=== PATIENT | female | born 1940 | race Caucasian/White ===

== ENCOUNTER 2016-12-17 08:00 | Inpatient (IN) | payer MEDICARE, BC ==
[2017-01-17] MEDS ORDERED: Lidocaine 1%/Sod Bicarbonate in NS 8.4% 1 ML Syringe IV PRN (07:00)
[2017-01-17] MEDS ORDERED: Lactated Ringers 1,000 ML IV SCH (07:00)
[2017-01-17] MEDS ORDERED: Sodium Chloride 0.9% 10 ML Syringe FLUSH PRN (07:00)
[2017-01-17] MEDS ORDERED: Morphine PF 10 MG/10 ML SDV ONE (07:14)
[2017-01-17] MEDS ORDERED: Propofol 200 MG/20 ML SDV ONE ×2 (07:15→09:04)
--- NOTE | 2017-01-17 07:53 | PCM.PREANE ---
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 Respiratory: Reports: no symptoms Cardiovascular: Reports: blood pressure problem GI: Reports: no symptoms Other: Reports: diabetes, thyroid problems - PHYSICAL ASSESSMENT HR: 78 O2 Sat by Pulse Oximetry: 95 RR: 16 BP: 123/83 Temp: 99.2 C ASA Class: 1 Mental Status: alert & oriented x3 Airway Class: Mallampati = 2 Dentition: Reports: dentures Thyro-Mental Finger Breadths: 3 Mouth Opening Finger Breadths: 3 ROM/Head Extension: full Respiratory Status: lungs clear to auscultation bilaterally Cardiovascular Status: regular rate & rhythm, normal S1, S2, no murmur, blood pressure WNL - LAB Values: Laboratory Last Values WBC 9.19 K/mm3 (3.98-10.04) 01/05/17 15:01 RBC 4.11 M/mm3 (3.98-5.22) 01/05/17 15:01 Hgb 13.2 gm/L (11.2-15.7) 01/05/17 15:01 Hct 39.5 % (34.1-44.9) 01/05/17 15:01 MCV 96.1 fl (79.4-94.8) H 01/05/17 15:01 MCH 32.1 pg (25.6-32.2) 01/05/17 15:01 MCHC 33.4 g/dl (32.2-35.5) 01/05/17 15:01 RDW Std Deviation 42.4 fL (36.4-46.3) 01/05/17 15:01 Plt Count 384 K/mm3 (182-369) H 01/05/17 15:01 MPV 9.4 fl (9.4-12.3) 01/05/17 15:01 Neut % (Auto) 56.5 % (34.0-71.1) 01/05/17 15:01 Lymph % (Auto) 31.0 % (19.3-51.7) 01/05/17 15: [place] % (Auto) 8.3 % (4.7-12.5) 01/05/17 15:01 Eos % (Auto) 2.3 (0.7-5.8) 01/05/17 15:01 Baso % (Auto) 0.9 % (0.1-1.2) 01/05/17 15:01 Neut # 5.20 K/mm3 (1.56-6.13) 01/05/17 15:01 Lymph # 2.85 K/mm3 (1.18-3.74) 01/05/17 15:01 M[place] # 0.76 K/mm3 (0.24-0.36) H 01/05/17 15:01 Eos # 0.21 K/mm3 (0.04-0.36) 01/05/17 15:01 Baso # 0.08 K/mm3 (0.01-0.08) 01/05/17 15:01 C-Reactive Protein 0.2 mg/dL (<1.0) 01/05/17 15:01 MRSA (PCR) Negative 01/05/17 15:01 - ALLERGIES Allergies/Adverse Reactions: Allergies Allergy/AdvReac Type Severity Reaction Status Date / Time cephalexin [From Keflex] Allergy Rash Verified 01/14/17 12:05 Corticosteroids Allergy Cannot Verified 01/14/17 12:05 (Glucocorticoids) Remember Penicillins Allergy Rash Verified 01/14/17 12:05 Sulfa (Sulfonamide Allergy Rash Verified 01/14/17 12:05 Antibiotics) - ANESTHESIA PLAN Preop Beta Angelica: No Anesthesia Type Planned: spinal - ACKNOWLEDGEMENTS Pt an appropriate candidate for the planned anesthesia: Yes Alternatives and risks of anesthesia discussed w pt/guardian: Yes Pt/Guardian understands and agree with anesthesia plan: Yes PreAnesthesia Questionnaire HEENT History: Reports: Impaired vision Cardiovascular History: Reports: High cholesterol, Hypertension Respiratory History: Reports: Sleep apnea (pt denies sleep apnea) Gastrointestinal History: Reports: None Genitourinary History: Reports: None 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: Musculoskeletal History: Reports: Arthritis, Other (see below) (hx back surgery) Other Musculoskeletal History: Tennis Elbow Neurological History: Reports: None Psychiatric History: Reports: None Endocrine/Metabolic History: Reports: Diabetes, type II (BS 128), Hypothyroidism Hematologic History: Reports: None Immunologic History: Reports: None Oncologic (Cancer) History: Reports: Basal cell carcinoma, Colon, Squamous cell carcinoma Dermatologic History: Reports: Eczema - Past Surgical History HEENT Surgical History: Reports: None Cardiovascular Surgical History: Reports: None Respiratory Surgical History: Reports: None GI Surgical History: Reports: Appendectomy, Cholecystectomy (no anesthetic complications), Other (see below) Other GI Surgeries/Procedures: Exploratory Laparotomy Female Surgical History: Reports: Tubal ligation Endocrine Surgical History: Reports: None Neurological Surgical History: Reports: Lumbar spine Musculoskeletal Surgical History: Reports: Arthroscopic knee (no anesthetic complications with any previous surgeries) Dermatological Surgical History: Reports: None - Past Imaging History Past Imaging History: Reports: None - SUBSTANCE USE Smoking Status *Q: Never Smoker Days Per Week of Alcohol Use: 0 Recreational Drug Use History: No - HOME MEDS Home Medications: Home Meds Aspirin [Halfprin] 81 mg PO Q2D 01/14/17 [History] Cetirizine [ZyrTEC] 10 mg PO DAILY 01/14/17 [History] Clobetasol [Clobetasol Propionate 0.05%] 1 applic TOP BID PRN 01/14/17 [History] Desonide 1 applic TP DAILY PRN 01/14/17 [History] Furosemide 20 mg PO Q2D 01/14/17 [History] Levothyroxine 125 mcg PO ACBREAKFAST 01/14/17 [History] Losartan [Cozaar] 100 mg PO DAILY 01/14/17 [History] Potassium Chloride [Klor-Con 10] 10 meq PO DAILY 01/14/17 [History] Red Yeast Rice 600 mg PO DAILY 01/14/17 [History] diphenhydrAMINE HCl [Sleep Aid] 25 mg PO BEDTIME PRN 01/14/17 [History] metFORMIN [Glucophage] 1,000 mg PO BIDMEALS 01/14/17 [History] - CURRENT (IN HOUSE) MEDS Current Meds: Current Medications Morphine Sulfate 8 mg/Epinephrine HCl 0.3 mg/Cefuroxime Sodium 750 mg/Ketorolac Tromethamine 30 mg/Sodium Chloride 27.9 ml 0 mg .XX ONETIME ONE Stop: 01/17/17 09:01 Lactated Ringer's (Ringers, Lactated) 1,000 mls @ 125 mls/hr IV ASDIRECTED [facility] Lidocaine/Sodium Bicarbonate (Buffered Lidocaine 1% In Ns 8.4%) 0.25 ml IV ONETIME PRN PRN Reason: Prior to IV Start Sodium Chloride (Saline Flush) 10 ml FLUSH ASDIRECTED PRN PRN Reason: Keep Vein Open Discontinued Medications Morphine Sulfate (Duramorph Pf) Confirm Administered Dose 10 mg .ROUTE .STK-MED ONE Stop: 01/17/17 07:15 Propofol (Diprivan 20 Ml) Confirm Administered Dose 200 mg .ROUTE .STK-MED ONE Stop: 01/17/17 07:16
[2017-01-17] MEDS ORDERED: Ondansetron 4 MG/2 ML SDV ONE (09:11)
[2017-01-17] MEDS ORDERED: Lactated Ringers 1,000 ML ONE (09:33)
[2017-01-17] MEDS: ceFAZolin 1 GM Vial ONE ×2 (09:35→09:54)
[2017-01-17] MEDS: Iodine/Sodium Iodide 2% Tincture 30 ML Bottle ONE ×2 (09:35→09:50)
[2017-01-17] MEDS: Morphine 8 MG, EPINEPHrine 0.3 MG, Cefuroxime 750 MG, Ketorolac 30 MG, Sodium Chloride ... ONE ×10 (09:36→09:59)
[2017-01-17] MEDS: Bupivacaine 0.25% 30 ML SDV ONE ×2 (09:38→09:59)
[2017-01-17] MEDS ORDERED: Clobetasol 0.05% Crm 30 GM Tube TOP PRN (09:58)
--- NOTE | 2017-01-17 10:38 | PCM.POSTAN ---
POST ANESTHESIA ASSESSMENT - MENTAL STATUS Mental Status: alert, oriented - VITAL SIGNS Pulse Rate: 83 SaO2: 94 Resp Rate: 10 Blood Pressure: 116/59 Temperature: 97.1 C - RESPIRATORY Respiratory Status: respiratory rate WNL, airway patent, O2 saturation stable - CARDIOVASCULAR CV Status: pulse rate WNL, blood pressure stable - GASTROINTESTINAL GI Status: no symptoms - POST OP HYDRATION Hydration Status: adequate & stable
[2017-01-17] MEDS ORDERED: Ondansetron 4 MG/2 ML SDV IVPUSH PRN ×2 (10:40→13:00)
[2017-01-17] MEDS ORDERED: ePHEDrine 50 MG/ML SDV IVPUSH PRN (10:40)
[2017-01-17] MEDS ORDERED: diphenhydrAMINE 50 MG/ML SDV IVPUSH PRN ×2 (10:40→13:00)
--- NOTE | 2017-01-17 11:14 | CR ---
Left knee: AP and lateral views of the left knee were obtained. Comparison: Previous left knee study of 08/19/16. Knee prosthesis is seen. Components are aligned. Underlying bony structures are intact. Soft tissue air and air within the joint are seen from the surgical procedure. Impression: 1. Satisfactory postoperative radiographic appearance of recently placed left knee prosthesis. Diagnostic code #2
[2017-01-17] MEDS ORDERED: fentaNYL 100 MCG/2 ML SDV IVPUSH PRN (11:45)
[2017-01-17] MEDS ORDERED: HYDROmorphone 0.5 MG/0.5 ML Syringe IVPUSH PRN (11:45)
[2017-01-17] MEDS ORDERED: Morphine 2 MG/ML Syringe IVPUSH PRN (12:00)
[2017-01-17] MEDS ORDERED: Ketorolac 15 MG/ML SDV IVPUSH PRN (12:00)
[2017-01-17] MEDS ORDERED: Naloxone 0.4 MG/ML SDV IVPUSH PRN (12:00)
--- NOTE | 2017-01-17 14:17 | PCM48HPAN ---
Post Anesthesia Note - EVALUATION WITHIN 48HRS OF ANESTHETIC Vital Signs in Normal Range: Yes Patient Participated in Evaluation: Yes Respiratory Function Stable: Yes Airway Patent: Yes Cardiovascular Function Stable: Yes Hydration Status Stable: Yes Pain Control Satisfactory: Yes Nausea and Vomiting Control Satisfactory: Yes Mental Status Recovered: Yes - COMMENTS/OBSERVATIONS Free Text/Narrative:: information obtained from RN caring for pt in PACU
--- NOTE | 2017-01-17 14:33 | PCM.CONS ---
H&P History of Present Illness - General Date of Service: 01/17/17 Admit Problem/Dx: Admission Diagnosis/Problem Admission Diagnosis/Problem Arthritis of knee Source of Information: Patient, Old records, RN notes reviewed History Limitations: Reports: Physical impairment - History of Present Illness Initial Comments - Free Text/Narative: This is a 76-year-old, white female, with past medical history of HTN, HLD, Hypothyroidism, DM2, AR, Insomnia, Raynaud Disease, Sjogren Syndrome, and Sleep Apnea who underwent left total knee arthroplasty post operative day zero. Patient is doing relatively well. Currently, her pain is controlled. She denies any acute issues. Medicine was consulted for postoperative care. Left Knee Pain Score (Numeric/FACES): 4 - Related Data Allergies/Adverse Reactions: Allergies Allergy/AdvReac Type Severity Reaction Status Date / Time cephalexin [From Keflex] Allergy Rash Verified 01/17/17 08:53 Corticosteroids Allergy Cannot Verified 01/17/17 08:53 (Glucocorticoids) Remember Penicillins Allergy Rash Verified 01/17/17 08:53 Sulfa (Sulfonamide Allergy Rash Verified 01/17/17 08:53 Antibiotics) Home Medications: Home Meds Aspirin [Halfprin] 81 mg PO Q2D 01/14/17 [History] Clobetasol [Clobetasol Propionate 0.05%] 1 applic TOP BID PRN 01/14/17 [History] Desonide 1 applic TP DAILY PRN 01/14/17 [History] Furosemide 20 mg PO Q2D 01/14/17 [History] Levothyroxine 125 mcg PO ACBREAKFAST 01/14/17 [History] Losartan [Cozaar] 100 mg PO DAILY 01/14/17 [History] Potassium Chloride [Klor-Con 10] 10 meq PO DAILY 01/14/17 [History] Red Yeast Rice 600 mg PO BID 01/14/17 [History] diphenhydrAMINE HCl [Sleep Aid] 25 mg PO BEDTIME PRN 01/14/17 [History] metFORMIN [Glucophage] 1,000 mg PO BIDMEALS 01/14/17 [History] Fexofenadine [[place]] 180 mg PO DAILY 01/17/17 [History] PEG 400/Hypromellose/Glycerin [Eye Drop Tears] 2 drop EYEBOTH DAILY 01/17/17 [ History] Past Medical History HEENT History: Reports: Impaired vision Other HEENT History: Wears glasses for reading and driving Cardiovascular History: Reports: High cholesterol, Hypertension Respiratory History: Reports: Sleep apnea Gastrointestinal History: Reports: None Genitourinary History: Reports: 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: Musculoskeletal History: Reports: Arthritis, Other (see below) Other Musculoskeletal History: Tennis Elbow Neurological History: Reports: None Psychiatric History: Reports: None Endocrine/Metabolic History: Reports: Diabetes, type II, Hypothyroidism, Other ( see below) Other Endocrine/Metabolic History: Raynaud's disease, Sjogren's syndrome Hematologic History: Reports: None Immunologic History: Reports: None Oncologic (Cancer) History: Reports: Basal cell carcinoma, Colon, Squamous cell carcinoma Dermatologic History: Reports: Eczema - Past Surgical History HEENT Surgical History: Reports: None Cardiovascular Surgical History: Reports: None Respiratory Surgical History: Reports: None GI Surgical History: Reports: Appendectomy, Cholecystectomy, Other (see below) Other GI Surgeries/Procedures: Exploratory Laparotomy Female Surgical History: Reports: Tubal ligation Endocrine Surgical History: Reports: None Neurological Surgical History: Reports: Lumbar spine Musculoskeletal Surgical History: Reports: Arthroscopic knee Dermatological Surgical History: Reports: None - Past Imaging History Past Imaging History: Reports: None Social & Family History - Tobacco Use Smoking Status *Q: Never Smoker - Alcohol Use Days Per Week of Alcohol Use: 0 - Recreational Drug Use Recreational Drug Use: No H&P Review of Systems - Review of Systems: Review Of Systems: See Below General: Denies: fever, chills, malaise, weakness, fatigue HEENT: Reports: no symptoms. Denies: visual changes Pulmonary: Denies: shortness of breath, wheezing Cardiovascular: Denies: chest pain, palpitations, dyspnea on exertion, edema, lightheadedness, syncope Gastrointestinal: Denies: Abdominal pain, Decreased appetite, Nausea, Vomiting Genitourinary: Reports: no symptoms Musculoskeletal: Reports: no symptoms Skin: Denies: cyanosis, pallor, bruising, rash Psychiatric: Denies: depression, anxiety, hallucinations Neurological: Denies: confusion Hematologic/Lymphatic: Reports: no symptoms Immunologic: Reports: no symptoms Exam - Exam Exam: See Below - Vital Signs Vital Signs: Last Vital Signs Temp 36.4 C 01/17/17 11:35 Pulse 53 L 01/17/17 11:35 Resp 18 01/17/17 12:00 BP 117/63 01/17/17 13:00 Pulse Ox 99 01/17/17 13:10 Weight: 72.167 kg - Exam General: alert, oriented, cooperative. No: mild distress HEENT: Conjunctiva clear, EACs clear, EOMI, Hearing intact, Mucosa moist & pink , Nares patent, Normal nasal septum, Posterior pharynx clear, PERRLA Neck: supple, trachea midline, 2+ carotid pulse wo bruit, full range of motion. No: JVD Lungs: Normal respiratory effort, Decreased breath sounds Cardiovascular: regular rate, regular rhythm Abdomen: normal bowel sounds, soft. No: organomegaly (Female) Exam: Other (Indwelling astudillo catheter) Rectal (Female) Exam: Deferred Back Exam: normal inspection, decreased range of motion Extremities: normal inspection, normal pulses. No: clubbing, cyanosis, calf tenderness, edema Peripheral Pulses: 2+: dorsalis pedis (L), dorsalis pedis (R) Skin: warm, dry, intact Neuro Extensive - Mental Status: oriented x3, normal cognition, memory intact Neuro Extensive - Motor, Sensory, Reflexes: CN II-XII intact (fairly intact), abnormal gait Psychiatric: alert, normal affect, normal mood - Patient Data Result Diagrams: 01/05/17 15:01 Consult PN Assessment/Plan POD#: 0 Procedures: Procedures ASSAY OF FERRITIN (12/27/16) ASSAY OF PREALBUMIN (12/27/16) ASSAY OF SERUM ALBUMIN (12/27/16) ASSAY THYROID STIM HORMONE (12/03/16) C-REACTIVE PROTEIN (01/28/16) CHEST X-RAY 2VW FRONTAL&LATL (12/27/16) CMPLX RPR S/A/L 2.6-7.5 CM (03/04/16) CMPLX RPR S/A/L ADDL 5 CM/> (03/04/16) COMP SCREEN MAMMOGRAM ADD-ON (07/14/16) COMPLEMENT ANTIGEN (01/28/16) COMPLETE CBC AUTOMATED (12/27/16) COMPLETE CBC W/AUTO DIFF WBC (01/28/16) COMPREHEN METABOLIC PANEL (12/03/16) CT CHEST SPINE W/O DYE (07/14/14) CT LUMBAR SPINE W/O DYE (07/14/14) EMERGENCY DEPT VISIT (03/04/16) EXTREMITY STUDY (03/15/16) GLYCOSYLATED HEMOGLOBIN TEST (12/03/16) LIPID PANEL (12/03/16) METABOLIC PANEL TOTAL CA (12/27/16) MICROALBUMIN SEMIQUANT (12/03/16) OFFICE/OUTPATIENT VISIT EST (03/03/16) PROTHROMBIN TIME (12/27/16) ROUTINE VENIPUNCTURE (12/03/16) THROMBOPLASTIN TIME PARTIAL (12/27/16) VITAMIN D 25 HYDROXY (12/27/16) X-RAY EXAM HIP UNI 2-3 VIEWS (08/19/16) X-RAY EXAM OF ANKLE (03/15/16) X-RAY EXAM OF KNEE 3 (08/19/16) X-RAY EXAM THORAC SPINE 3VWS (07/14/14) Problem List Initiated/Reviewed/Updated: Yes Plan: Assessment: Acute: Post-Operative Care State - Stable - Continue to monitor for hemodynamic instability S/p Left Total Knee Arthroplasty - Stable - DVT and Pain Management as per primary team Hx/o Chronic OA/DJD - Pain Management as per primary team Chronic: HTN HLD Hypothyroidism DM2 AR Insomnia Raynaud Disease Sjogren Syndrome Sleep Apnea Plan: She is clinically stable Routine AM labs Continue home meds Accu-check and ISS BID PT/OT consult IS q2 awake Thank you for the opportunity to participate in the management of this patient. Requesting Provider: Dr. Lancaster Date Consult Requested: 01/17/17 Reason for Consult: Post-Operative Care Patient History Reviewed: Yes Admission H&P Reviewed: Yes Consult Result/Summary: Stable
[2017-01-17] MEDS: ceFAZolin 2 GM in Premix Bag 1 BAG IV SCH ×2 (14:53→23:37)
[2017-01-17] MEDS ORDERED: Aspirin 81 MG Tab.EC PO SCH (16:00)
[2017-01-17] MEDS ORDERED: DESONIDE TOP PRN (16:00)
[2017-01-17] MEDS: metFORMIN 500 MG Tab PO SCH (16:56)
[2017-01-17] MEDS: Acetaminophen/HYDROcodone 325-5 MG Tab PO PRN ×2 (17:38→23:43)
[2017-01-17] MEDS ORDERED: 50% Dextrose in Water 50 ML Syringe IVPUSH PRN (19:04)
[2017-01-17] MEDS ORDERED: Insulin Aspart 100 Units/ML 3 ML Pen SUBCUT SCH (19:15)
[2017-01-17] MEDS ORDERED: Magnesium Hydroxide 400 MG/5 ML Susp 30 ML Cup PO PRN (21:00)
[2017-01-17] MEDS ORDERED: Sennosides 8.6 MG Tab PO PRN (21:00)
[2017-01-17] MEDS ORDERED: Docusate Sodium 100 MG Cap PO PRN (21:00)
[2017-01-17] MEDS: Famotidine 20 MG Tab PO SCH (21:17)
[2017-01-18] MEDS: Acetaminophen/HYDROcodone 325-5 MG Tab PO PRN ×4 (04:33→16:21)
[2017-01-18] MEDS ORDERED: Levothyroxine 125 MCG Tab PO SCH (06:00)
[2017-01-18] MEDS: Insulin Aspart 100 Units/ML 3 ML Pen SUBCUT SCH ×2 (06:15→11:15)
[2017-01-18] MEDS: ceFAZolin 2 GM in Premix Bag 1 BAG IV SCH (06:45)
--- NOTE | 2017-01-18 06:51 | PCM.CONSN ---
- General Info Date of Service: 01/18/17 Admission Dx/Problem (Free Text): Admission Diagnosis/Problem Admission Diagnosis/Problem Arthritis of knee Subjective Update: Follow Up Functional Status: Reports: pain controlled, tolerating diet, ambulating, urinating. Denies: new symptoms - Review of Systems General: Denies: fever, weakness, fatigue, malaise HEENT: Reports: no symptoms Pulmonary: Denies: shortness of breath, cough Cardiovascular: Denies: chest pain, palpitations, dyspnea on exertion, edema Gastrointestinal: Denies: Abdominal pain, Nausea, Vomiting Musculoskeletal: Reports: no symptoms Skin: Reports: no symptoms Neurological: Denies: confusion Psychiatric: Denies: depression, anxiety, hallucinations Systems Review Comment:: No overnight or acute issues. Pain is controlled. She has no new complaints. - Patient Data Vitals - most recent: Last Vital Signs Temp 37.0 C 01/18/17 04:29 Pulse 72 01/18/17 04:29 Resp 18 01/18/17 06:00 BP 130/87 01/18/17 04:29 Pulse Ox 98 01/18/17 06:00 Weight - most recent: 76.34 kg I&O - last 24 hours: Intake & Output 01/17/17 01/17/17 01/18/17 14:59 22:59 06:59 Intake Total 960 930 550 Output Total 450 700 Balance 510 230 550 Lab Results last 24 hrs: Laboratory Results - last 24 hr 01/17/17 01/18/17 01/18/17 Range/Units 21:08 04:40 06:07 WBC 8.53 (3.98-10.04) K/mm3 RBC 3.53 L (3.98-5.22) M/mm3 Hgb 11.2 (11.2-15.7) gm/L Hct 35.0 (34.1-44.9) % MCV 99.2 H (79.4-94.8) fl MCH 31.7 (25.6-32.2) pg MCHC 32.0 L (32.2-35.5) g/dl RDW Std Deviation 46.1 (36.4-46.3) fL Plt Count 271 (182-369) K/mm3 MPV 10.5 (9.4-12.3) fl Neut % (Auto) 53.5 (34.0-71.1) % Lymph % (Auto) 28.5 (19.3-51.7) % [place] % (Auto) 11.6 (4.7-12.5) % Eos % (Auto) 5.4 (0.7-5.8) Baso % (Auto) 0.6 (0.1-1.2) % Neut # 4.57 (1.56-6.13) K/mm3 Lymph # 2.43 (1.18-3.74) K/mm3 [place] # 0.99 H (0.24-0.36) K/mm3 Eos # 0.46 H (0.04-0.36) K/mm3 Baso # 0.05 (0.01-0.08) K/mm3 POC Glucose 183 H 129 H (83-110) mg/dL Med Orders - Current: Current Medications Acetaminophen/Hydrocodone Bitart ([place] 325-5 Mg) 2 tab PO Q4H PRN PRN Reason: Pain Last Admin: 01/18/17 04:33 Dose: 1 tab Artificial Tears (Isopto Tears 0.5% Ophth Soln) 0 ml EYEBOTH DAILY [facility] Aspirin (Halfprin) 81 mg PO Q48H [facility] Last Admin: 01/17/17 16:55 Dose: 81 mg Bisacodyl (Dulcolax) 10 mg PO DAILY PRN PRN Reason: Constipation Clobetasol Propionate (Clobetasol 0.05%) 0 gm TOP BID PRN PRN Reason: Other Dextrose/Water (Dextrose 50% In Water) 50 ml IVPUSH ASDIRECTED PRN PRN Reason: Hypoglycemia Diphenhydramine HCl (Benadryl) 25 mg IVPUSH Q4H PRN PRN Reason: Nausea Docusate Sodium (Colace) 100 mg PO BID PRN PRN Reason: Constipation Famotidine (Pepcid) 20 mg PO Q12H [facility] Last Admin: 01/17/17 21:17 Dose: 20 mg Furosemide (Lasix) 20 mg PO Q48H [facility] Cefazolin Sodium/Dextrose 2 gm (/ Premix) 50 mls @ 50 mls/hr IV Q8H [facility] Stop: 01/18/17 08:44 Last Admin: 01/18/17 06:45 Dose: 50 mls/hr Insulin Aspart (Novolog) 0 unit SUBCUT QIDACANDBED [facility] PRN Reason: Protocol Last Admin: 01/18/17 06:15 Dose: Not Given Ketorolac Tromethamine (Toradol) 15 mg IVPUSH Q8H PRN PRN Reason: Pain Levothyroxine Sodium (Levothyroxine) 125 mcg PO ACBREAKFAST [facility] Last Admin: 01/18/17 06:10 Dose: 125 mcg Loratadine (Claritin) 10 mg PO DAILY [facility] Losartan Potassium (Cozaar) 100 mg PO DAILY [facility] Magnesium Hydroxide (Milk Of Magnesia) 30 ml PO BID PRN PRN Reason: Constipation Metformin HCl (Glucophage) 1,000 mg PO BIDMEALS [facility] Last Admin: 01/17/17 16:56 Dose: 1,000 mg Morphine Sulfate (Morphine) 2 mg IVPUSH Q2H PRN PRN Reason: Breakthrough Pain Ondansetron HCl (Zofran) 4 mg IVPUSH Q6H PRN PRN Reason: Nausea/Vomiting Desonide [Desonide] (1 Applic) 0 each TOP DAILY PRN PRN Reason: Other Potassium Chloride (Klor-Con 10) 10 meq PO DAILY [facility] Rivaroxaban (Xarelto) 10 mg PO DAILY [facility] Senna (Senna) 8.6 mg PO BID PRN PRN Reason: Constipation Sodium Chloride (Saline Flush) 10 ml FLUSH ASDIRECTED PRN PRN Reason: Keep Vein Open Discontinued Medications Bupivacaine HCl (Marcaine 0.25%) Confirm Administered Dose 30 ml .ROUTE .STK- MED ONE Stop: 01/17/17 07:47 Last Admin: 01/17/17 09:59 Dose: 30 ml Cefazolin Sodium (Ancef) Confirm Administered Dose 2 gm .ROUTE .STK-MED ONE Stop: 01/17/17 07:47 Last Admin: 01/17/17 09:54 Dose: 2 gm Morphine Sulfate 8 mg/Epinephrine HCl 0.3 mg/Cefuroxime Sodium 750 mg/Ketorolac Tromethamine 30 mg/Sodium Chloride 27.9 ml 0 mg .XX ONETIME ONE Stop: 01/17/17 09:01 Last Admin: 01/17/17 09:59 Dose: 788.3 mg Diphenhydramine HCl (Benadryl) 25 mg IVPUSH Q6H PRN PRN Reason: pruritis Stop: 01/17/17 18:00 Last Admin: 01/17/17 12:03 Dose: 25 mg Ephedrine Sulfate (Ephedrine Sulfate) 5 mg IVPUSH ASDIRECTED PRN PRN Reason: Hypotension Stop: 01/17/17 18:00 Fentanyl (Sublimaze) 50 mcg IVPUSH Q5M PRN PRN Reason: Pain Stop: 01/17/17 12:01 Hydromorphone HCl (Dilaudid) 0.5 mg IVPUSH Q15M PRN PRN Reason: severe pain Stop: 01/17/17 12:01 Lactated Ringer's (Ringers, Lactated) 1,000 mls @ 125 mls/hr IV ASDIRECTED [facility] Last Admin: 01/17/17 08:15 Dose: 125 mls/hr Lactated Ringer's (Ringers, Lactated) Confirm Administered Dose 1,000 mls @ as directed .ROUTE .STK-MED ONE Stop: 01/17/17 09:34 Insulin Aspart (Novolog) 0 unit SUBCUT ASDIRECTED [facility] PRN Reason: Protocol Iodine (Iodine 2% Mild Tincture) Confirm Administered Dose 30 ml .ROUTE .STK- MED ONE Stop: 01/17/17 07:47 Last Admin: 01/17/17 09:50 Dose: 18 ml Lidocaine/Sodium Bicarbonate (Buffered Lidocaine 1% In Ns 8.4%) 0.25 ml IV ONETIME PRN PRN Reason: Prior to IV Start Last Admin: 01/17/17 08:14 Dose: 0.25 ml Morphine Sulfate (Duramorph Pf) Confirm Administered Dose 10 mg .ROUTE .STK-MED ONE Stop: 01/17/17 07:15 Naloxone HCl (Narcan) 0.1 mg IVPUSH Q5M PRN PRN Reason: Oversedation Stop: 01/17/17 12:16 Ondansetron HCl (Zofran) Confirm Administered Dose 4 mg .ROUTE .STK-MED ONE Stop: 01/17/17 09:12 Ondansetron HCl (Zofran) 4 mg IVPUSH ONETIME PRN PRN Reason: Nausea/Vomiting Stop: 01/17/17 18:00 Propofol (Diprivan 20 Ml) Confirm Administered Dose 200 mg .ROUTE .STK-MED ONE Stop: 01/17/17 07:16 Propofol (Diprivan 20 Ml) Confirm Administered Dose 200 mg .ROUTE .STK-MED ONE Stop: 01/17/17 09:05 Tranexamic Acid (Cyklokapron) Confirm Administered Dose 1,000 mg .ROUTE .STK- MED ONE Stop: 01/17/17 07:47 Last Admin: 01/17/17 10:05 Dose: 1,000 mg - Exam General: alert, oriented, cooperative, no acute distress HEENT: Pupils equal, Pupils reactive, EOMI, Mucous membr. moist/pink Neck: supple, trachea midline, no JVD Lungs: Normal respiratory effort, Decreased breath sounds Cardiovascular: regular rate, regular rhythm Abdomen: bowel sounds present, soft, no tenderness, no distension (Female) Exam: Deferred Back Exam: normal inspection, decreased range of motion Extremities: no edema, normal pulses, no tenderness/swelling, no clubbing, no cyanosis, no calf tenderness Peripheral Pulses: 2+: dorsalis pedis (L), dorsalis pedis (R) Skin: warm, dry, intact Wound/Incisions: healing well, dressing dry and intact, no drainage Neurological: no new focal deficit Psy/Mental Status: alert, normal affect, normal mood Consult PN Assessment/Plan POD#: 1 Procedures: Procedures ASSAY OF FERRITIN (12/27/16) ASSAY OF PREALBUMIN (12/27/16) ASSAY OF SERUM ALBUMIN (12/27/16) ASSAY THYROID STIM HORMONE (12/03/16) C-REACTIVE PROTEIN (01/28/16) CHEST X-RAY 2VW FRONTAL&LATL (12/27/16) CMPLX RPR S/A/L 2.6-7.5 CM (03/04/16) CMPLX RPR S/A/L ADDL 5 CM/> (03/04/16) COMP SCREEN MAMMOGRAM ADD-ON (07/14/16) COMPLEMENT ANTIGEN (01/28/16) COMPLETE CBC AUTOMATED (12/27/16) COMPLETE CBC W/AUTO DIFF WBC (01/28/16) COMPREHEN METABOLIC PANEL (12/03/16) CT CHEST SPINE W/O DYE (07/14/14) CT LUMBAR SPINE W/O DYE (07/14/14) EMERGENCY DEPT VISIT (03/04/16) EXTREMITY STUDY (03/15/16) GLYCOSYLATED HEMOGLOBIN TEST (12/03/16) LIPID PANEL (12/03/16) METABOLIC PANEL TOTAL CA (12/27/16) MICROALBUMIN SEMIQUANT (12/03/16) OFFICE/OUTPATIENT VISIT EST (03/03/16) PROTHROMBIN TIME (12/27/16) ROUTINE VENIPUNCTURE (12/03/16) THROMBOPLASTIN TIME PARTIAL (12/27/16) VITAMIN D 25 HYDROXY (12/27/16) X-RAY EXAM HIP UNI 2-3 VIEWS (08/19/16) X-RAY EXAM OF ANKLE (03/15/16) X-RAY EXAM OF KNEE 3 (08/19/16) X-RAY EXAM THORAC SPINE 3VWS (07/14/14) Problem List Initiated/Reviewed/Updated: Yes My Orders last 24 hours: My Active Orders 01/17/17 19:04 Blood Glucose Check, Bedside [RC] WITHMEALSANDBED Dextrose 50% in Water 50 ml IVPUSH ASDIRECTED PRN 01/18/17 07:00 Insulin Aspart [NovoLOG] See Protocol SUBCUT QIDACANDBED 01/18/17 09:00 Hypromellose [Isopto Tears 0.5% Ophth Soln] 0 ml EYEBOTH DAILY Plan: Assessment: Acute: Post-Operative Care State - Stable - Continue to monitor for hemodynamic instability S/p Left Total Knee Arthroplasty - Stable - DVT and Pain Management as per primary team Hx/o Chronic OA/DJD - Pain Management as per primary team Chronic: HTN HLD Hypothyroidism DM2 AR Insomnia Raynaud Disease Sjogren Syndrome Sleep Apnea Plan: She remains clinically stable Routine AM labs Continue home meds, Accu-check and ISS BID, PT/OT, and IS q2 awake We have no additional recommendation at this time
[2017-01-18] MEDS: metFORMIN 500 MG Tab PO SCH (08:00)
[2017-01-18] MEDS: Famotidine 20 MG Tab PO SCH (08:01)
--- NOTE | 2017-01-18 08:18 | PCM48HPAN ---
Post Anesthesia Note - EVALUATION WITHIN 48HRS OF ANESTHETIC Vital Signs in Normal Range: Yes Patient Participated in Evaluation: Yes Respiratory Function Stable: Yes Airway Patent: Yes Cardiovascular Function Stable: Yes Hydration Status Stable: Yes Pain Control Satisfactory: Yes Nausea and Vomiting Control Satisfactory: Yes Mental Status Recovered: Yes
[2017-01-18] MEDS ORDERED: Losartan 100 MG Tab PO SCH (09:00)
[2017-01-18] MEDS ORDERED: Furosemide 20 MG Tab PO SCH (09:00)
[2017-01-18] MEDS ORDERED: Potassium Chloride 10 MEQ Tab.ER PO SCH (09:00)
[2017-01-18] MEDS ORDERED: Bisacodyl 5 MG Tab PO PRN (09:00)
[2017-01-18] MEDS ORDERED: Famotidine 20 MG Tab PO SCH (09:00)
[2017-01-18] MEDS ORDERED: Loratadine 10 MG Tab PO SCH (09:00)
[2017-01-18] MEDS ORDERED: Rivaroxaban 10 MG Tab PO SCH (09:00)
[2017-01-18] MEDS ORDERED: Hypromellose 0.5% Ophth Soln 15 ML Bottle EYEBOTH SCH (09:00)
[2017-01-18 11:28] VITALS: BP 116/77
--- NOTE | 2017-01-18 17:39 | PCM.SURGPN ---
- General Info Date of Service: 01/18/17 POD#: 1 Functional Status: Reports: pain controlled, tolerating diet, ambulating, urinating, other (The pt progressed very well with therapies today.). Denies: new symptoms - Patient Data Vitals - most recent: Last Vital Signs Temp 97.9 F 01/18/17 11:12 Pulse 70 01/18/17 11:12 Resp 20 01/18/17 11:12 BP 116/77 01/18/17 11:12 Pulse Ox 92 L 01/18/17 11:12 Weight - most recent: 168 lb 4.8 oz I&O - last 24 hours: Intake & Output 01/18/17 01/18/17 01/18/17 06:59 14:59 22:59 Intake Total 616 863 8536 Balance 521 021 1124 Lab Results last 24 hrs: Laboratory Results - last 24 hr 01/17/17 01/18/17 01/18/17 Range/Units 21:08 04:40 04:40 WBC 8.53 (3.98-10.04) K/mm3 RBC 3.53 L (3.98-5.22) M/mm3 Hgb 11.2 (11.2-15.7) gm/L Hct 35.0 (34.1-44.9) % MCV 99.2 H (79.4-94.8) fl MCH 31.7 (25.6-32.2) pg MCHC 32.0 L (32.2-35.5) g/dl RDW Std Deviation 46.1 (36.4-46.3) fL Plt Count 271 (182-369) K/mm3 MPV 10.5 (9.4-12.3) fl Neut % (Auto) 53.5 (34.0-71.1) % Lymph % (Auto) 28.5 (19.3-51.7) % Vermilion % (Auto) 11.6 (4.7-12.5) % Eos % (Auto) 5.4 (0.7-5.8) Baso % (Auto) 0.6 (0.1-1.2) % Neut # 4.57 (1.56-6.13) K/mm3 Lymph # 2.43 (1.18-3.74) K/mm3 Vermilion # 0.99 H (0.24-0.36) K/mm3 Eos # 0.46 H (0.04-0.36) K/mm3 Baso # 0.05 (0.01-0.08) K/mm3 Sodium 137 (136-145) mEq/L Potassium 4.1 (3.5-5.1) mEq/L Chloride 102 (98-107) mEq/L Carbon Dioxide 22 (21-32) mEq/L Anion Gap 17.1 H (5-15) BUN 18 (7-18) mg/dL Creatinine 1.0 (0.55-1.02) mg/dL Est Cr Clr Drug Dosing 38.97 mL/min Estimated GFR (MDRD) 54 (>60) mL/min BUN/Creatinine Ratio 18.0 (14-18) Glucose 133 H (83-115) mg/dL POC Glucose 183 H (83-110) mg/dL Calcium 8.6 (8.5-10.1) mg/dL Total Bilirubin 0.4 (0.2-1.0) mg/dL AST 14 L (15-37) U/L ALT 14 (14-59) U/L Alkaline Phosphatase 50 (46-116) U/L Total Protein 6.2 L (6.4-8.2) g/dl Albumin 3.0 L (3.4-5.0) g/dl Globulin 3.2 gm/dL Albumin/Globulin Ratio 0.9 L (1-2) 01/18/17 01/18/17 Range/Units 06:07 11:10 WBC (3.98-10.04) K/mm3 RBC (3.98-5.22) M/mm3 Hgb (11.2-15.7) gm/L Hct (34.1-44.9) % MCV (79.4-94.8) fl MCH (25.6-32.2) pg MCHC (32.2-35.5) g/dl RDW Std Deviation (36.4-46.3) fL Plt Count (182-369) K/mm3 MPV (9.4-12.3) fl Neut % (Auto) (34.0-71.1) % Lymph % (Auto) (19.3-51.7) % Vermilion % (Auto) (4.7-12.5) % Eos % (Auto) (0.7-5.8) Baso % (Auto) (0.1-1.2) % Neut # (1.56-6.13) K/mm3 Lymph # (1.18-3.74) K/mm3 Vermilion # (0.24-0.36) K/mm3 Eos # (0.04-0.36) K/mm3 Baso # (0.01-0.08) K/mm3 Sodium (136-145) mEq/L Potassium (3.5-5.1) mEq/L Chloride (98-107) mEq/L Carbon Dioxide (21-32) mEq/L Anion Gap (5-15) BUN (7-18) mg/dL Creatinine (0.55-1.02) mg/dL Est Cr Clr Drug Dosing mL/min Estimated GFR (MDRD) (>60) mL/min BUN/Creatinine Ratio (14-18) Glucose (83-115) mg/dL POC Glucose 129 H 144 H (83-110) mg/dL Calcium (8.5-10.1) mg/dL Total Bilirubin (0.2-1.0) mg/dL AST (15-37) U/L ALT (14-59) U/L Alkaline Phosphatase (46-116) U/L Total Protein (6.4-8.2) g/dl Albumin (3.4-5.0) g/dl Globulin gm/dL Albumin/Globulin Ratio (1-2) Med Orders - Current: Current Medications Discontinued Medications Acetaminophen/Hydrocodone Bitart ([place] 325-5 Mg) 2 tab PO Q4H PRN PRN Reason: Pain Last Admin: 01/18/17 16:21 Dose: 2 tab Artificial Tears (Isopto Tears 0.5% Ophth Soln) 0 ml EYEBOTH DAILY [facility] Last Admin: 01/18/17 08:02 Dose: 2 drop Aspirin (Halfprin) 81 mg PO Q48H [facility] Last Admin: 01/17/17 16:55 Dose: 81 mg Bisacodyl (Dulcolax) 10 mg PO DAILY PRN PRN Reason: Constipation Bupivacaine HCl (Marcaine 0.25%) Confirm Administered Dose 30 ml .ROUTE .STK- MED ONE Stop: 01/17/17 07:47 Last Admin: 01/17/17 09:59 Dose: 30 ml Cefazolin Sodium (Ancef) Confirm Administered Dose 2 gm .ROUTE .STK-MED ONE Stop: 01/17/17 07:47 Last Admin: 01/17/17 09:54 Dose: 2 gm Clobetasol Propionate (Clobetasol 0.05%) 0 gm TOP BID PRN PRN Reason: Other Morphine Sulfate 8 mg/Epinephrine HCl 0.3 mg/Cefuroxime Sodium 750 mg/Ketorolac Tromethamine 30 mg/Sodium Chloride 27.9 ml 0 mg .XX ONETIME ONE Stop: 01/17/17 09:01 Last Admin: 01/17/17 09:59 Dose: 788.3 mg Dextrose/Water (Dextrose 50% In Water) 50 ml IVPUSH ASDIRECTED PRN PRN Reason: Hypoglycemia Diphenhydramine HCl (Benadryl) 25 mg IVPUSH Q4H PRN PRN Reason: Nausea Diphenhydramine HCl (Benadryl) 25 mg IVPUSH Q6H PRN PRN Reason: pruritis Stop: 01/17/17 18:00 Last Admin: 01/17/17 12:03 Dose: 25 mg Docusate Sodium (Colace) 100 mg PO BID PRN PRN Reason: Constipation Ephedrine Sulfate (Ephedrine Sulfate) 5 mg IVPUSH ASDIRECTED PRN PRN Reason: Hypotension Stop: 01/17/17 18:00 Famotidine (Pepcid) 20 mg PO Q12H [facility] Last Admin: 01/18/17 08:01 Dose: 20 mg Famotidine (Pepcid) 20 mg PO DAILY [facility] Last Admin: 01/18/17 09:17 Dose: Not Given Fentanyl (Sublimaze) 50 mcg IVPUSH Q5M PRN PRN Reason: Pain Stop: 01/17/17 12:01 Furosemide (Lasix) 20 mg PO Q48H [facility] Last Admin: 01/18/17 08:01 Dose: 20 mg Hydromorphone HCl (Dilaudid) 0.5 mg IVPUSH Q15M PRN PRN Reason: severe pain Stop: 01/17/17 12:01 Lactated Ringer's (Ringers, Lactated) 1,000 mls @ 125 mls/hr IV ASDIRECTED [facility] Last Admin: 01/17/17 08:15 Dose: 125 mls/hr Lactated Ringer's (Ringers, Lactated) Confirm Administered Dose 1,000 mls @ as directed .ROUTE .STK-MED ONE Stop: 01/17/17 09:34 Cefazolin Sodium/Dextrose 2 gm (/ Premix) 50 mls @ 50 mls/hr IV Q8H [facility] Stop: 01/18/17 08:44 Last Admin: 01/18/17 06:45 Dose: 50 mls/hr Insulin Aspart (Novolog) 0 unit SUBCUT ASDIRECTED [facility] PRN Reason: Protocol Insulin Aspart (Novolog) 0 unit SUBCUT QIDACANDBED [facility] PRN Reason: Protocol Last Admin: 01/18/17 11:15 Dose: Not Given Iodine (Iodine 2% Mild Tincture) Confirm Administered Dose 30 ml .ROUTE .STK- MED ONE Stop: 01/17/17 07:47 Last Admin: 01/17/17 09:50 Dose: 18 ml Ketorolac Tromethamine (Toradol) 15 mg IVPUSH Q8H PRN PRN Reason: Pain Stop: 01/21/17 12:01 Last Admin: 01/18/17 08:02 Dose: 15 mg Levothyroxine Sodium (Levothyroxine) 125 mcg PO ACBREAKFAST [facility] Last Admin: 01/18/17 06:10 Dose: 125 mcg Lidocaine/Sodium Bicarbonate (Buffered Lidocaine 1% In Ns 8.4%) 0.25 ml IV ONETIME PRN PRN Reason: Prior to IV Start Last Admin: 01/17/17 08:14 Dose: 0.25 ml Loratadine (Claritin) 10 mg PO DAILY [facility] Last Admin: 01/18/17 08:01 Dose: 10 mg Losartan Potassium (Cozaar) 100 mg PO DAILY [facility] Last Admin: 01/18/17 08:01 Dose: 100 mg Magnesium Hydroxide (Milk Of Magnesia) 30 ml PO BID PRN PRN Reason: Constipation Metformin HCl (Glucophage) 1,000 mg PO BIDMEALS [facility] Last Admin: 01/18/17 08:00 Dose: 1,000 mg Morphine Sulfate (Duramorph Pf) Confirm Administered Dose 10 mg .ROUTE .STK-MED ONE Stop: 01/17/17 07:15 Morphine Sulfate (Morphine) 2 mg IVPUSH Q2H PRN PRN Reason: Breakthrough Pain Naloxone HCl (Narcan) 0.1 mg IVPUSH Q5M PRN PRN Reason: Oversedation Stop: 01/17/17 12:16 Ondansetron HCl (Zofran) Confirm Administered Dose 4 mg .ROUTE .STK-MED ONE Stop: 01/17/17 09:12 Ondansetron HCl (Zofran) 4 mg IVPUSH Q6H PRN PRN Reason: Nausea/Vomiting Ondansetron HCl (Zofran) 4 mg IVPUSH ONETIME PRN PRN Reason: Nausea/Vomiting Stop: 01/17/17 18:00 Desonide [Desonide] (1 Applic) 0 each TOP DAILY PRN PRN Reason: Other Potassium Chloride (Klor-Con 10) 10 meq PO DAILY [facility] Last Admin: 01/18/17 08:00 Dose: 10 meq Propofol (Diprivan 20 Ml) Confirm Administered Dose 200 mg .ROUTE .STK-MED ONE Stop: 01/17/17 07:16 Propofol (Diprivan 20 Ml) Confirm Administered Dose 200 mg .ROUTE .STK-MED ONE Stop: 01/17/17 09:05 Rivaroxaban (Xarelto) 10 mg PO DAILY [facility] Last Admin: 01/18/17 09:39 Dose: 10 mg Senna (Senna) 8.6 mg PO BID PRN PRN Reason: Constipation Sodium Chloride (Saline Flush) 10 ml FLUSH ASDIRECTED PRN PRN Reason: Keep Vein Open Tranexamic Acid (Cyklokapron) Confirm Administered Dose 1,000 mg .ROUTE .STK- MED ONE Stop: 01/17/17 07:47 Last Admin: 01/17/17 10:05 Dose: 1,000 mg - Exam Wound/Incisions: dressing dry and intact General: alert, cooperative, no acute distress Lungs: Normal respiratory effort Extremities: normal pulses, no calf tenderness, other (NVS intact for BLE. Kandis's negative. Independent SLR LLE.) - Problem List Review Problem List Initiated/Reviewed/Updated: Yes - My Orders Last 24 Hours: Active Orders 24 hr Category Date Time Status Blood Glucose Check, Bedside [RC] WITHMEALSANDBED Care 01/17/17 19:04 Active Ready for Discharge [RC] PER UNIT ROUTINE Care 01/18/17 12:31 Active - Assessment Assessment (Free Text/Narrative):: POD#1 - left TKA - Plan Plan (Free Text/Narrative):: 1. Hgb 11.2 2. Discharge to home today with daughter. 3. Cherelle Singletary, frequent mobility. The pt's case was discussed with Dr. Lancaster.
--- NOTE | 2017-01-21 06:53 | PCM.DCSUM1 ---
Discharge Summary - Hospital Course Brief History: Mony is a 77 yo female who underwent left TKA with Dr. Lancaster on 01-18-2017. The procedure was completed under spinal anesthesia. The pt tolerated the procedure well and was admitted to the Medical-Surgical Unit. Medical management was provided by the Hospitalist service. The pt's Hospital course was uneventful. Her blood sugars were closely monitored. The pt's Hgb on POD#1 was 11.2. On POD#1, Xarelto was initiated for VTE prophylaxis. A Mepilex dressing was placed at the incision site at the time of surgery and remained clean and dry. The pt participated in P.T. and O.T. and progressed very well. The pt was allowed to WBAT. On POD#1, the pt was deemed appropriate to discharge to home with her daughters. The pt will closely monitor blood sugars and follow-up with her primary care provider. - Discharge Data Discharge Date: 01/18/17 Discharge Disposition: Home, Self-Care 01 Condition: Good - Patient Summary/Data Consults: Consultations 01/17/17 09:52 Consult to Case Management [CONS] Routine Consult to Physician [CONS] Routine OT Evaluation and Treatment [CONS] Routine 01/17/17 09:56 PT Evaluation and Treatment [CONS] Routine - Patient Instructions Diet: Usual Diet as Tolerated Activity: Apply Ice, As Tolerated, Elevate Extremity, Full Weight Bearing Driving: Do Not Drive Showering/Bathing: May Shower Wound/Incision Care: Keep Operative Site/Wound Site Clean and Dry Notify Provider of: Fever, Increased Pain, Swelling and Redness, Drainage, Nausea and/or Vomiting Other/Special Instructions: Please get up and moving around every hour while awake. Please use your walker and have help as needed. Take the blood thinner medication - Xarelto - daily. Do the exercises you were taught in the Hospital. Schedule for P.T. Use the pain medication as needed. The medication may cause drowsiness and constipation. Contact your primary care provider for instructions if you are constipated. You may use a stool softener like docusate sodium or Colace 100mg twice daily and/or a laxative like polyethylene glycol or Miralax daily for constipation. Use the ice machine often. Elevate the limb to decrease swelling. Keep the Mepilex dressing in place until follow-up at the Clinic. Notify the Clinic if the dressing is saturated. Wear the OSCAR hose during the day and you may remove these at night. Schedule an appointment with your primary care provider for 'routine post-op care'. Call the Clinic with questions or concerns - [phone]. - Discharge Plan Prescriptions/Med Rec: Acetaminophen/HYDROcodone [[place] 325-5 MG] 1 - 2 tab PO Q4H PRN #60 tablet PRN Reason: Pain Rivaroxaban [Xarelto] 10 mg PO DAILY #13 tablet Home Medications: Home Meds Aspirin [Halfprin] 81 mg PO Q2D 01/14/17 [History] Clobetasol [Clobetasol 0.05%] 1 applic TOP BID PRN 01/14/17 [History] Desonide 1 applic TP DAILY PRN 01/14/17 [History] Furosemide 20 mg PO Q2D 01/14/17 [History] Levothyroxine 125 mcg PO ACBREAKFAST 01/14/17 [History] Losartan [Cozaar] 100 mg PO DAILY 01/14/17 [History] Potassium Chloride [Klor-Con 10] 10 meq PO DAILY 01/14/17 [History] Red Yeast Rice 600 mg PO BID 01/14/17 [History] diphenhydrAMINE HCl [Sleep Aid] 25 mg PO BEDTIME PRN 01/14/17 [History] metFORMIN [Glucophage] 1,000 mg PO BIDMEALS 01/14/17 [History] Fexofenadine [[place]dal[place]] 180 mg PO DAILY 01/17/17 [History] PEG 400/Hypromellose/Glycerin [Eye Drop Tears] 2 drop EYEBOTH DAILY 01/17/17 [ History] Acetaminophen/HYDROcodone [[place] 325-5 MG] 1 - 2 tab PO Q4H PRN #60 tablet 01/18 [Rx] Docusate Sodium [Colace] 100 mg PO BID PRN #0 cap 01/18/17 [Rx] Famotidine [Pepcid] 20 mg PO DAILY tablet 01/18/17 [Rx] Magnesium Hydroxide [Milk of Magnesia] 30 ml PO BID PRN #0 cup 01/18/17 [Rx] Rivaroxaban [Xarelto] 10 mg PO DAILY #13 tablet 01/18/17 [Rx] Sennosides [Senna] 8.6 mg PO BID PRN #0 tablet 01/18/17 [Rx] Patient Handouts: Rivaroxaban oral tablets, Total Knee Replacement, Care After , [id number], Total Knee Replacement, Nvmi-[id number], Knee Rehabilitation Guidelines Following Surgery Referrals: Alisa Brink NUTRITION PROFESSOR [Primary Care Provider] - 01/26/17 11:45 am (Please arrive 15 mins early. ) Christie Jiménez PA-C [Physician Contact Center Assistant] - 01/25/17 11:10 am - Patient Data Vitals - Most Recent: Last Vital Signs Temp 97.9 F 01/18/17 11:12 Pulse 70 01/18/17 11:12 Resp 20 01/18/17 11:12 BP 116/77 01/18/17 11:12 Pulse Ox 92 L 01/18/17 11:12 Weight - Most Recent: 168 lb 4.8 oz Med Orders - Current: Current Medications Discontinued Medications Acetaminophen/Hydrocodone Bitart ([place] 325-5 Mg) 2 tab PO Q4H PRN PRN Reason: Pain Last Admin: 01/18/17 16:21 Dose: 2 tab Artificial Tears (Isopto Tears 0.5% Ophth Soln) 0 ml EYEBOTH DAILY [facility] Last Admin: 01/18/17 08:02 Dose: 2 drop Aspirin (Halfprin) 81 mg PO Q48H [facility] Last Admin: 01/17/17 16:55 Dose: 81 mg Bisacodyl (Dulcolax) 10 mg PO DAILY PRN PRN Reason: Constipation Bupivacaine HCl (Marcaine 0.25%) Confirm Administered Dose 30 ml .ROUTE .STK- MED ONE Stop: 01/17/17 07:47 Last Admin: 01/17/17 09:59 Dose: 30 ml Cefazolin Sodium (Ancef) Confirm Administered Dose 2 gm .ROUTE .STK-MED ONE Stop: 01/17/17 07:47 Last Admin: 01/17/17 09:54 Dose: 2 gm Clobetasol Propionate (Clobetasol 0.05%) 0 gm TOP BID PRN PRN Reason: Other Morphine Sulfate 8 mg/Epinephrine HCl 0.3 mg/Cefuroxime Sodium 750 mg/Ketorolac Tromethamine 30 mg/Sodium Chloride 27.9 ml 0 mg .XX ONETIME ONE Stop: 01/17/17 09:01 Last Admin: 01/17/17 09:59 Dose: 788.3 mg Dextrose/Water (Dextrose 50% In Water) 50 ml IVPUSH ASDIRECTED PRN PRN Reason: Hypoglycemia Diphenhydramine HCl (Benadryl) 25 mg IVPUSH Q4H PRN PRN Reason: Nausea Diphenhydramine HCl (Benadryl) 25 mg IVPUSH Q6H PRN PRN Reason: pruritis Stop: 01/17/17 18:00 Last Admin: 01/17/17 12:03 Dose: 25 mg Docusate Sodium (Colace) 100 mg PO BID PRN PRN Reason: Constipation Ephedrine Sulfate (Ephedrine Sulfate) 5 mg IVPUSH ASDIRECTED PRN PRN Reason: Hypotension Stop: 01/17/17 18:00 Famotidine (Pepcid) 20 mg PO Q12H [facility] Last Admin: 01/18/17 08:01 Dose: 20 mg Famotidine (Pepcid) 20 mg PO DAILY [facility] Last Admin: 01/18/17 09:17 Dose: Not Given Fentanyl (Sublimaze) 50 mcg IVPUSH Q5M PRN PRN Reason: Pain Stop: 01/17/17 12:01 Furosemide (Lasix) 20 mg PO Q48H [facility] Last Admin: 01/18/17 08:01 Dose: 20 mg Hydromorphone HCl (Dilaudid) 0.5 mg IVPUSH Q15M PRN PRN Reason: severe pain Stop: 01/17/17 12:01 Lactated Ringer's (Ringers, Lactated) 1,000 mls @ 125 mls/hr IV ASDIRECTED [facility] Last Admin: 01/17/17 08:15 Dose: 125 mls/hr Lactated Ringer's (Ringers, Lactated) Confirm Administered Dose 1,000 mls @ as directed .ROUTE .STK-MED ONE Stop: 01/17/17 09:34 Cefazolin Sodium/Dextrose 2 gm (/ Premix) 50 mls @ 50 mls/hr IV Q8H [facility] Stop: 01/18/17 08:44 Last Admin: 01/18/17 06:45 Dose: 50 mls/hr Insulin Aspart (Novolog) 0 unit SUBCUT ASDIRECTED [facility] PRN Reason: Protocol Insulin Aspart (Novolog) 0 unit SUBCUT QIDACANDBED [facility] PRN Reason: Protocol Last Admin: 01/18/17 11:15 Dose: Not Given Iodine (Iodine 2% Mild Tincture) Confirm Administered Dose 30 ml .ROUTE .STK- MED ONE Stop: 01/17/17 07:47 Last Admin: 01/17/17 09:50 Dose: 18 ml Ketorolac Tromethamine (Toradol) 15 mg IVPUSH Q8H PRN PRN Reason: Pain Stop: 01/21/17 12:01 Last Admin: 01/18/17 08:02 Dose: 15 mg Levothyroxine Sodium (Levothyroxine) 125 mcg PO ACBREAKFAST [facility] Last Admin: 01/18/17 06:10 Dose: 125 mcg Lidocaine/Sodium Bicarbonate (Buffered Lidocaine 1% In Ns 8.4%) 0.25 ml IV ONETIME PRN PRN Reason: Prior to IV Start Last Admin: 01/17/17 08:14 Dose: 0.25 ml Loratadine (Claritin) 10 mg PO DAILY [facility] Last Admin: 01/18/17 08:01 Dose: 10 mg Losartan Potassium (Cozaar) 100 mg PO DAILY [facility] Last Admin: 01/18/17 08:01 Dose: 100 mg Magnesium Hydroxide (Milk Of Magnesia) 30 ml PO BID PRN PRN Reason: Constipation Metformin HCl (Glucophage) 1,000 mg PO BIDMEALS [facility] Last Admin: 01/18/17 08:00 Dose: 1,000 mg Morphine Sulfate (Duramorph Pf) Confirm Administered Dose 10 mg .ROUTE .K-MED ONE Stop: 01/17/17 07:15 Morphine Sulfate (Morphine) 2 mg IVPUSH Q2H PRN PRN Reason: Breakthrough Pain Naloxone HCl (Narcan) 0.1 mg IVPUSH Q5M PRN PRN Reason: Oversedation Stop: 01/17/17 12:16 Ondansetron HCl (Zofran) Confirm Administered Dose 4 mg .ROUTE .K-MED ONE Stop: 01/17/17 09:12 Ondansetron HCl (Zofran) 4 mg IVPUSH Q6H PRN PRN Reason: Nausea/Vomiting Ondansetron HCl (Zofran) 4 mg IVPUSH ONETIME PRN PRN Reason: Nausea/Vomiting Stop: 01/17/17 18:00 Desonide [Desonide] (1 Applic) 0 each TOP DAILY PRN PRN Reason: Other Potassium Chloride (Klor-Con 10) 10 meq PO DAILY [facility] Last Admin: 01/18/17 08:00 Dose: 10 meq Propofol (Diprivan 20 Ml) Confirm Administered Dose 200 mg .ROUTE .STK-MED ONE Stop: 01/17/17 07:16 Propofol (Diprivan 20 Ml) Confirm Administered Dose 200 mg .ROUTE .STK-MED ONE Stop: 01/17/17 09:05 Rivaroxaban (Xarelto) 10 mg PO DAILY [facility] Last Admin: 01/18/17 09:39 Dose: 10 mg Senna (Senna) 8.6 mg PO BID PRN PRN Reason: Constipation Sodium Chloride (Saline Flush) 10 ml FLUSH ASDIRECTED PRN PRN Reason: Keep Vein Open Tranexamic Acid (Cyklokapron) Confirm Administered Dose 1,000 mg .ROUTE .STK- MED ONE Stop: 01/17/17 07:47 Last Admin: 01/17/17 10:05 Dose: 1,000 mg *Q Meaningful Use (DIS) - VTE *Q VTE Criteria *Q: - Stroke *Q Stroke Criteria *Q: - AMI *Q AMI Criteria *Q:
--- NOTE | 2017-01-24 22:07 | PCM.OPNOTE ---
- General Post-Op/Procedure Note Date of Surgery/Procedure: 02/14/17 Operative Procedure(s): left total knee arthroplasty Pre Op Diagnosis: left knee osteoarthrosis Post-Op Diagnosis: Same Anesthesia Technique: Local, MAC, Spinal Primary Surgeon: Fred Lancaster Anesthesia Provider: Gina Aguilar Commutator Presser: Christie Jiménez Commutator Presser: Evy Messer EBL in mLs: 150 Complications: None Condition: Good
--- NOTE | 2017-01-24 22:39 | OR ---
DATE OF OPERATION: 01/17/2017 SURGEON: Fred Lancaster MD OPERATION PERFORMED: Left total knee arthroplasty. PREOPERATIVE DIAGNOSIS: Left knee osteoarthrosis. POSTOPERATIVE DIAGNOSIS: Left knee osteoarthrosis. ANESTHESIA: Local MAC with spinal. ANESTHESIA PROVIDER: Gina Aguilar. YOUTH PROGRAM DIRECTOR: Christie Jiménez PA-C and Evy Messer LPN. ESTIMATED BLOOD LOSS: 150 mL COMPLICATIONS: None. CONDITION: Stable. IMPLANTS: 1. [place] size 4 PS femur. 2. Mónica size 4 [place] tibial base plate. 3. [place] size 4, 9 mm X3 polyethylene PS. 4. Mónica 32 x 10 mm asymmetric patella. DESCRIPTION OF PROCEDURE: The patient was identified in the preop holding area. Proper site was marked and identified by the surgeon. The patient was taken back to the operating theater. After adequate anesthesia, the patient's left lower extremity had a nonsterile tourniquet applied and it was then sterilely prepped and draped in the usual sterile fashion. OR timeout was performed. The patient received 2 g IV Ancef. At this time, left lower extremity was exsanguinated. Tourniquet was insufflated to 300 mmHg. Standard medial parapatellar incision was made. Medial parapatellar arthrotomy was created. Deep fibers of the MCL were raised and anterior fat pad was resected. At this time, attention was turned to the patella. Patella measured 23, it was resected to a 13 for a 32 x 10 mm patella. Drill holes were then drilled and found to be in adequate position. The drill was then drilled in the distal femur and the intramedullary distal femoral cutting guide was then placed. 8 mm was resected off the distal femur and was found to be an adequate resection. Sizing guide was placed. It was found to be a size 4 PS femur that was shown on the implant record at the beginning of this dictation. The drill holes were drilled for the epicondylar axis using Whitesides line and epicondyles as reference. At this time, the 4-in-1 cutting block was placed. An anterior posterior and anterior and posterior chamfer cuts were then completed. The correct size box cut was then placed and the box cut was completed and found to be an adequate resection. Attention was turned to the tibia. The posterior medial lateral retractors were placed. The extramedullary tibial guide was placed. It was placed in the old footprint of the ACL. It was aligned with the center of the ankle and 0 degrees of slope, 9 mm was then resected off the unaffected lateral side. There was found to be an acceptable reduction. At this time, posterior osteophytes were removed along with medial and lateral meniscus. A trial implant was placed with a correct sized tibia that was mentioned at the beginning of the dictation. A 9 mm X3 polyethylene was then placed. The patient's knee was brought through range of motion. The patella was tracking centrally and was stable to varus and valgus stress. Alignment was found to be roughly at 0 degrees. At this time, cement was mixed on the back table. The tibia was stamped and drilled in proper rotation. All cut surfaces were irrigated with pulse lavage irrigation with Ancef and then completely dried. Once this was completed, then the cement was ready. The universal tibial base plate was cemented in place. Next, the 4 PS femur cemented into place and the 9 mm trial spacer and 9 mm X3 polyethylene was placed. The patient's knee was brought into full extension. Excess cement was removed. The patella was then cemented in place at this time. Tourniquet was deflated. One liter dilute Betadine solution was irrigated through the knee along with 3 L of pulse lavage irrigation with Ancef. Periarticular injection was then completed. The patient's knee was brought through a range of motion. Once the cement had time to set up and it was found to be stable to varus valgus stress, the patella was tracking centrally with full range of motion. At this time, a #2 barbed suture was used for closure of the medial parapatellar arthrotomy. Topical tranexamic acid was placed. 2-0 Vicryl was used subcutaneously, a running 3-0 Monocryl was used subcuticularly. The patient tolerated the procedure well and was sent to the PACU in stable condition. HARI /[id number]
== END 2017-01-18 16:38 | disposition home or self-care (01) | DRG 470 ==
LOC: JD.OB 01-17 07:33 → JD.MS 01-17 20:14
PROVIDERS: ADMIT Orthopaedic Surgery; ATTEND Orthopaedic Surgery
PROC: 0SRD0J9 Replacement of Left Knee Joint with Synthetic Substitute, Cemented, Open Approach (ICD-10-PCS; principal; 2017-01-17)
DX: M17.12 Unilateral primary osteoarthritis, left knee (principal); J30.9 Allergic rhinitis, unspecified; M19.90 Unspecified osteoarthritis, unspecified site; I10 Essential (primary) hypertension; E03.9 Hypothyroidism, unspecified; E78.5 Hyperlipidemia, unspecified; G47.00 Insomnia, unspecified; I73.00 Raynaud's syndrome without gangrene; M35.00 Sjogren syndrome, unspecified; G47.30 Sleep apnea, unspecified; Z88.8 Allergy status to other drugs, medicaments and biological substances; Z79.82 Long term (current) use of aspirin; Z79.899 Other long term (current) drug therapy; E11.9 Type 2 diabetes mellitus without complications; Z79.84 Long term (current) use of oral hypoglycemic drugs
CPT/HCPCS: 01402; 36415; 73560-26-LT; 73560-LT; 80053; 82962; 85025; 86140; 87641; 94762; 97110-GP; 97116-GP; 97161-GP; 97165-GO; 97535-GO; A9270-GY; C1713; C1776; J0171; J0690; J0697; J1200; J1885; J2270; J2405; J2704; J3490; J7120

== ENCOUNTER 2017-06-22 21:30 | Emergency (ER) | payer MEDICARE, BC ==
--- NOTE | 2017-06-22 22:52 | EDM.PDOC ---
ED HPI GENERAL MEDICAL PROBLEM - General Chief Complaint: ENT Problem Stated Complaint: SWOLLEN TUNG Time Seen by Provider: 06/22/17 22:51 - History of Present Illness INITIAL COMMENTS - FREE TEXT/NARRATIVE: 77-year-old female presents emergency room with a swollen tongue. This started swelling early this evening around 8:30 this evening she took 2 Benadryl and this usually fixes however it did not start to improve so he came in. However with the weight to be seen it is now starting to improve somewhat. Patient states she gets a swollen tongue frequently and usually responds to Benadryl the patient is not on any ALESSIO inhibitor however is on an ARB for hypertension. - Related Data Allergies Allergy/AdvReac Type Severity Reaction Status Date / Time cephalexin [From Keflex] Allergy Rash Verified 06/22/17 21:38 Corticosteroids Allergy Cannot Verified 06/22/17 21:38 (Glucocorticoids) Remember Penicillins Allergy Rash Verified 06/22/17 21:38 Sulfa (Sulfonamide Allergy Rash Verified 06/22/17 21:38 Antibiotics) Home Meds: Home Meds Aspirin [Halfprin] 81 mg PO DAILY 01/14/17 [History] Clobetasol [Clobetasol 0.05%] 1 applic TOP BID PRN 01/14/17 [History] Desonide 1 applic TP DAILY PRN 01/14/17 [History] Furosemide 20 mg PO Q2D 01/14/17 [History] Levothyroxine 125 mcg PO ACBREAKFAST 01/14/17 [History] Losartan [Cozaar] 100 mg PO DAILY 01/14/17 [History] Potassium Chloride [Klor-Con 10] 10 meq PO DAILY 01/14/17 [History] Red Yeast Rice 600 mg PO BID 01/14/17 [History] diphenhydrAMINE HCl [Sleep Aid] 25 mg PO BEDTIME PRN 01/14/17 [History] metFORMIN [Glucophage] 1,000 mg PO BIDMEALS 01/14/17 [History] Fexofenadine [Magdalena] 180 mg PO DAILY 01/17/17 [History] PEG 400/Hypromellose/Glycerin [Eye Drop Tears] 2 drop EYEBOTH DAILY 01/17/17 [ History] Sennosides [Senna] 8.6 mg PO BID PRN #0 tablet 01/18/17 [Rx] Past Medical History HEENT History: Reports: Impaired Vision Other HEENT History: Wears glasses for reading and driving Cardiovascular History: Reports: High Cholesterol, Hypertension Respiratory History: Reports: Sleep Apnea Gastrointestinal History: Reports: None Genitourinary History: Reports: None 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: Musculoskeletal History: Reports: Arthritis, Other (See Below) Other Musculoskeletal History: Tennis Elbow Neurological History: Reports: None Psychiatric History: Reports: None Endocrine/Metabolic History: Reports: Diabetes, Type II, Hypothyroidism, Other ( See Below) Other Endocrine/Metabolic History: Raynaud's disease, Sjogren's syndrome Hematologic History: Reports: None Immunologic History: Reports: None Oncologic (Cancer) History: Reports: Basal Cell Carcinoma, Colon, Squamous Cell Carcinoma Dermatologic History: Reports: Eczema - Past Surgical History GI Surgical History: Reports: Appendectomy, Cholecystectomy, Other (See Below) Female Surgical History: Reports: Tubal Ligation Neurological Surgical History: Reports: Lumbar Spine Musculoskeletal Surgical History: Reports: Arthroscopic Knee, Other (See Below) Other Musculoskeletal Surgeries/Procedures:: back surgery Dermatological Surgical History: Reports: None - Past Imaging History Past Imaging History: Reports: None Social & Family History - Tobacco Use Smoking Status *Q: Never Smoker - Caffeine Use Caffeine Use: Reports: Coffee - Alcohol Use Days Per Week of Alcohol Use: 0 - Recreational Drug Use Recreational Drug Use: No ED ROS GENERAL - Review of Systems Review Of Systems: See Below Constitutional: Reports: No Symptoms HEENT: Reports: Other (Tongue swelling). Denies: Ear Pain, Eye Pain, Rhinitis, Sinus Problem, Throat Pain, Throat Swelling (She does not have a sensation of closing throat) Respiratory: Reports: No Symptoms Cardiovascular: Reports: No Symptoms GI/Abdominal: Reports: No Symptoms : Reports: No Symptoms Neurological: Reports: No Symptoms ED EXAM, GENERAL - Physical Exam Exam: See Below Exam Limited By: No Limitations General Appearance: Alert, No Apparent Distress Eye Exam: Bilateral Eye: Normal Inspection Ears: Normal External Exam, Normal Canal, Hearing Grossly Normal, Normal TMs Nose: Normal Inspection, Normal Mucosa, No Blood Throat/Mouth: Normal Inspection, Normal Lips, Normal Gums, Normal Oropharynx, Normal Voice, No Airway Compromise Head: Atraumatic, Normocephalic Neck: Normal Inspection, Supple, Non-Tender, Full Range of Motion. No: Lymphadenopathy (L), Lymphadenopathy (R) Respiratory/Chest: No Respiratory Distress, Lungs Clear, Normal Breath Sounds Cardiovascular: Regular Rate, Rhythm, No Edema, No Murmur GI/Abdominal: Normal Bowel Sounds, Soft, Non-Tender Course - Vital Signs Last Recorded V/S: Last Vital Signs Temp 36.3 C 06/22/17 21:34 Pulse 73 06/22/17 21:34 Resp 18 06/22/17 21:34 BP Pulse Ox 96 06/22/17 21:34 - Orders/Labs/Meds Meds: Medications Discontinued Medications Generic Name Dose Route Start Last Admin Trade Name Nataliia PRN Reason Stop Dose Admin Famotidine 20 mg 06/22/17 22:58 06/22/17 23:32 Pepcid IVPUSH 06/22/17 22:59 20 mg ONETIME ONE Administration - Re-Assessments/Exams Free Text/Narrative Re-Assessment/Exam: 06/23/17 00:41 Patient is doing much better she is back to normal. She'll be discharged home. Departure - Departure Time of Disposition: 00:43 Disposition: Home, Self-Care 01 Clinical Impression: Mild tongue swelling - Discharge Information Forms: ED Department Discharge Additional Instructions: Return to the emergency room with any questions problems worsening symptoms. Continue your Benadryl 1 tablet 4 times a day for 24 hours and then as needed. 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
[2017-06-22] MEDS ORDERED: Famotidine 20 MG/2 ML SDV IVPUSH ONE (22:58)
== END 2017-06-23 00:50 | disposition home or self-care (01) ==
LOC: JD.ED 21:30
DX: R22.0 Localized swelling, mass and lump, head (principal); E03.9 Hypothyroidism, unspecified; E78.00 Pure hypercholesterolemia, unspecified; I10 Essential (primary) hypertension; M19.90 Unspecified osteoarthritis, unspecified site; Z85.828 Personal history of other malignant neoplasm of skin; Z90.49 Acquired absence of other specified parts of digestive tract; Z98.51 Tubal ligation status; Z98.890 Other specified postprocedural states; Z79.84 Long term (current) use of oral hypoglycemic drugs; Z79.899 Other long term (current) drug therapy; Z79.82 Long term (current) use of aspirin; Z88.2 Allergy status to sulfonamides; Z88.1 Allergy status to other antibiotic agents; Z88.0 Allergy status to penicillin; Z88.8 Allergy status to other drugs, medicaments and biological substances
CPT/HCPCS: 96374; 99284; 99285-25

== ENCOUNTER 2017-08-04 20:32 | Emergency (ER) | payer MEDICARE, BC ==
[2017-08-04 20:43] VITALS: BP 173/87
--- NOTE | 2017-08-04 20:48 | EDM.PDOC ---
ED HPI GENERAL MEDICAL PROBLEM - General Chief Complaint: Allergic Reaction Stated Complaint: tung swelling Time Seen by Provider: 08/04/17 20:48 - History of Present Illness INITIAL COMMENTS - FREE TEXT/NARRATIVE: 77-year-old female presents emergency room with tongue swelling. The patient was just seen for this before she gets this frequently and usually responds to Benadryl but as of late it's not responding as well as it used to. He was given Pepcid. But had difficulty swallowing or this evening. She is not having any shortness of breath or breathing difficulties. Patient denies any new exposures. And is unsure what is causing this. She is not having any chest pain or palpitations with this no abdominal pain. - Related Data Allergies Allergy/AdvReac Type Severity Reaction Status Date / Time cephalexin [From Keflex] Allergy Rash Verified 08/04/17 20:43 Corticosteroids Allergy Cannot Verified 08/04/17 20:43 (Glucocorticoids) Remember Penicillins Allergy Rash Verified 08/04/17 20:43 Sulfa (Sulfonamide Allergy Rash Verified 08/04/17 20:43 Antibiotics) Home Meds: Home Meds Aspirin [Halfprin] 81 mg PO DAILY 01/14/17 [History] Clobetasol [Clobetasol 0.05%] 1 applic TOP BID PRN 01/14/17 [History] Desonide 1 applic TP DAILY PRN 01/14/17 [History] Furosemide 20 mg PO Q2D 01/14/17 [History] Levothyroxine 125 mcg PO ACBREAKFAST 01/14/17 [History] Losartan [Cozaar] 100 mg PO DAILY 01/14/17 [History] Potassium Chloride [Klor-Con 10] 10 meq PO DAILY 01/14/17 [History] Red Yeast Rice 600 mg PO BID 01/14/17 [History] diphenhydrAMINE HCl [Sleep Aid] 25 mg PO BEDTIME PRN 01/14/17 [History] metFORMIN [Glucophage] 1,000 mg PO BIDMEALS 01/14/17 [History] Fexofenadine [Magdalena] 180 mg PO DAILY 01/17/17 [History] PEG 400/Hypromellose/Glycerin [Eye Drop Tears] 2 drop EYEBOTH DAILY 01/17/17 [ History] Sennosides [Senna] 8.6 mg PO BID PRN #0 tablet 01/18/17 [Rx] Past Medical History HEENT History: Reports: Impaired Vision Other HEENT History: Wears glasses for reading and driving Cardiovascular History: Reports: High Cholesterol, Hypertension Respiratory History: Reports: Sleep Apnea Gastrointestinal History: Reports: None Genitourinary History: Reports: None 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: Musculoskeletal History: Reports: Arthritis, Other (See Below) Other Musculoskeletal History: Tennis Elbow Neurological History: Reports: None Psychiatric History: Reports: None Endocrine/Metabolic History: Reports: Diabetes, Type II, Hypothyroidism, Other ( See Below) Other Endocrine/Metabolic History: Raynaud's disease, Sjogren's syndrome Hematologic History: Reports: None Immunologic History: Reports: None Oncologic (Cancer) History: Reports: Basal Cell Carcinoma, Colon, Squamous Cell Carcinoma Dermatologic History: Reports: Eczema - Past Surgical History HEENT Surgical History: Reports: None Cardiovascular Surgical History: Reports: None Respiratory Surgical History: Reports: None GI Surgical History: Reports: Appendectomy, Cholecystectomy, Other (See Below) Female Surgical History: Reports: Tubal Ligation Neurological Surgical History: Reports: Lumbar Spine Musculoskeletal Surgical History: Reports: Arthroscopic Knee, Knee Replacement, Other (See Below) Other Musculoskeletal Surgeries/Procedures:: back surgery Dermatological Surgical History: Reports: None - Past Imaging History Past Imaging History: Reports: None Social & Family History - Tobacco Use Smoking Status *Q: Never Smoker Second Hand Smoke Exposure: No - Caffeine Use Caffeine Use: Reports: Coffee - Alcohol Use Days Per Week of Alcohol Use: 0 - Recreational Drug Use Recreational Drug Use: No ED ROS ALLERGIC REACTION - Review of Systems Review Of Systems: See Below Constitutional: Reports: No Symptoms HEENT: Reports: Other (Tongue swelling and she reports difficulty taking her Pepcid) Respiratory: Reports: No Symptoms. Denies: Shortness of Breath Cardiovascular: Reports: No Symptoms. Denies: Chest Pain, Dyspnea on Exertion Endocrine: Reports: No Symptoms GI/Abdominal: Reports: No Symptoms : Reports: No Symptoms Neurological: Reports: No Symptoms ED EXAM GENERAL NO PERIP PULSE - Physical Exam Exam: See Below Exam Limited By: No Limitations General Appearance: Alert, No Apparent Distress Eye Exam: Bilateral Eye: Normal Inspection Ears: Normal External Exam, Normal Canal, Normal TMs Nose: Normal Inspection, Normal Mucosa, No Blood Throat/Mouth: Normal Inspection, Normal Oropharynx, Normal Voice, No Airway Compromise, Other (Her tongue is a little swollen) Head: Atraumatic, Normocephalic Neck: Normal Inspection, Supple, Non-Tender, Full Range of Motion. No: Lymphadenopathy (L), Lymphadenopathy (R) Respiratory/Chest: No Respiratory Distress, Lungs Clear, Normal Breath Sounds Cardiovascular: Regular Rate, Rhythm, No Edema, No Murmur GI/Abdominal: Normal Bowel Sounds, Soft, Non-Tender Neurological: Alert, Oriented, Normal Cognition Course - Vital Signs Last Recorded V/S: Last Vital Signs Temp 36.6 C 08/04/17 20:40 Pulse 79 08/04/17 20:40 Resp 18 08/04/17 20:40 BP 173/87 H 08/04/17 20:40 Pulse Ox 96 08/04/17 20:40 - Orders/Labs/Meds Meds: Medications Discontinued Medications Generic Name Dose Route Start Last Admin Trade Name Freq PRN Reason Stop Dose Admin Famotidine 40 mg 08/04/17 21:05 08/04/17 21:12 Pepcid IVPUSH 08/04/17 21:06 40 mg ONETIME ONE Administration - Re-Assessments/Exams Free Text/Narrative Re-Assessment/Exam: 08/04/17 22:03 A she was given Pepcid 40 mg IV and is doing much better at this time she like to go home her voice is quite back to normal I like her to wait a little bit longer she agrees to this. 08/04/17 22:22 Patient continues to do better her voice is back to normal she is somewhat consistent with going home at this time I have recommended she get allergy testing she needs to follow-up with her primary provider to get this arranged. Departure - Departure Time of Disposition: 22:22 Disposition: Home, Self-Care 01 Clinical Impression: Mild tongue swelling - Discharge Information Referrals: Alisa Brink, [employer]ITION [employer]TER [Primary Care Provider] - Forms: ED Department Discharge Additional Instructions: Return to the emergency room with any questions problems or worsening symptoms. Follow-up with your regular provider discussed the need of having allergy evaluation to try and determine the cause of this tongue swelling. Continue the Benadryl as needed and the Pepcid twice daily.
[2017-08-04] MEDS ORDERED: Famotidine 20 MG/2 ML SDV IVPUSH ONE (21:05)
== END 2017-08-04 22:45 | disposition home or self-care (01) ==
LOC: JD.ED 20:32
DX: R22.0 Localized swelling, mass and lump, head (principal); I10 Essential (primary) hypertension; E11.9 Type 2 diabetes mellitus without complications; E78.00 Pure hypercholesterolemia, unspecified; E03.9 Hypothyroidism, unspecified; Z88.0 Allergy status to penicillin; Z88.2 Allergy status to sulfonamides; Z88.8 Allergy status to other drugs, medicaments and biological substances; Z79.82 Long term (current) use of aspirin; Z79.899 Other long term (current) drug therapy; Z90.49 Acquired absence of other specified parts of digestive tract
CPT/HCPCS: 96374; 99283; 99283-25

== ENCOUNTER 2024-07-12 23:01 | Emergency (ER) | payer MEDICARE, BC ==
[2024-07-12 23:55] LABS: BASOPHILS ABSOLUTE AUTO 0.1 K/mm3 (0.0-0.2); BASOPHILS PERCENT AUTO 0.4 % (0.0-1.0); EOSINOPHILS ABSOLUTE AUTO 0.1 K/mm3 (0.0-0.4); EOSINOPHILS PERCENT AUTO 0.3 % (0.0-6.0); HEMOGLOBIN 11.6 gm/dl (12.0-16.0); IMMATURE GRAN ABSOLUTE AUTO 0.09 K/mm3 (0.00-0.05); IMMATURE GRAN PERCENT AUTO 0.4 % (0.0-0.4); LYMPHOCYTES ABSOLUTE AUTO 1.6 K/mm3 (1.0-4.8); MEAN CORPUSCULAR HEMOGLOBIN 32.6 pg (28.0-32.0); MEAN CORPUSCULAR HGB CONC 33.1 g/dl (32.0-36.0); MEAN CORPUSCULAR VOLUME 98.3 fl (83.0-99.0); MEAN PLATELET VOLUME 9.8 fl (9.4-12.3); MONOCYTES ABSOLUTE AUTO 1.2 K/mm3 (0.0-0.8); NEUTROPHILS ABSOLUTE AUTO 17.1 K/mm3 (1.8-7.7); NEUTROPHILS PERCENT AUTO 84.9 % (41.0-71.0); PLATELET COUNT,PLT 269 K/mm3 (150-400); RED BLOOD CELL COUNT 3.56 M/mm3 (4.10-5.30)
[2024-07-12] MEDS ORDERED: Sodium Chloride 0.9% 10 ML Syringe FLUSH PRN (23:59)
[2024-07-13 00:01] LABS: CORONAVIRUS COVID-19 NAA NEGATIVE (NEGATIVE); INFLUENZA A NAA NEGATIVE (NEGATIVE); RESPIRATORY SYNCYTIAL VIR NAA NEGATIVE (NEGATIVE)
[2024-07-13 00:16] LABS: A/G RATIO 0.9 (1-2); ALANINE AMINOTRANSFERASE,ALT 18 U/L (14-59); ALBUMIN 3.2 g/dl (3.4-5.0); ALKALINE PHOSPHATASE 50 U/L (46-116); ANION GAP 11.4 (5-15); ASPARTATE AMNIOTRANSFERASE,AST 15 U/L (15-37); BILIRUBIN TOTAL 0.5 mg/dL (0.2-1.0); BLOOD UREA NITROGEN,BUN 29 mg/dL (7-18); BUN/CREATININE RATIO 17.1 (14-18); CARBON DIOXIDE,CO2 26 mEq/L (21-32); CHLORIDE,CL 103 mEq/L (98-107); CREATININE 1.7 mg/dL (0.55-1.02); ESTIMATED GFR 29 mL/min (>60); GLUCOSE RANDOM 167 mg/dL (70-99); MAGNESIUM 1.5 mg/dL (1.8-2.4); POTASSIUM,K 4.4 mEq/L (3.5-5.1); PROTEIN TOTAL,TP 6.8 g/dl (6.4-8.2); SODIUM,NA 136 mEq/L (136-145)
[2024-07-13 00:23] LABS: LACTIC ACID 1.6 mmol/L (0.4-2.0)
[2024-07-13 00:25] LABS: APPEARANCE,URINE SLT CLOUDY (Clear); BILIRUBIN,URINE NEGATIVE (Negative); COLOR,URINE YELLOW (Yellow); GLUCOSE,URINE NEGATIVE (Negative); KETONES,URINE NEGATIVE (Negative); LEUKOCYTE ESTERASE,URINE 1+ (Negative); NITRITE,URINE NEGATIVE (Negative); OCCULT BLOOD,URINE 2+ (Negative); PROTEIN,URINE TRACE (Negative); UROBILINOGEN,URINE 0.2 (0.2-1.0)
[2024-07-13 00:47] LABS: BACTERIA,URINE MANY /hpf (FEW); MUCUS,URINE NOT SEEN /hpf (FEW); RBC,URINE 30-40 /hpf (0-5); WBC,URINE 75-100 /hpf (0-5)
[2024-07-13] MEDS: Levofloxacin/Dextrose 5%-Water 500 MG in Premix Bag 1 BAG IV ONE (01:32)
[2024-07-13 02:19] VITALS: BP 128/71; PULSE 89
== END 2024-07-13 02:20 | disposition home or self-care (01) ==
LOC: JD.ED 23:01
DX: N39.0 Urinary tract infection, site not specified (principal); D72.829 Elevated white blood cell count, unspecified; I10 Essential (primary) hypertension; E78.00 Pure hypercholesterolemia, unspecified; E11.9 Type 2 diabetes mellitus without complications; E03.9 Hypothyroidism, unspecified; Z90.49 Acquired absence of other specified parts of digestive tract; Z79.899 Other long term (current) drug therapy; Z79.84 Long term (current) use of oral hypoglycemic drugs; Z79.890 Hormone replacement therapy; Z79.82 Long term (current) use of aspirin; Z88.0 Allergy status to penicillin; Z88.2 Allergy status to sulfonamides; Z88.8 Allergy status to other drugs, medicaments and biological substances
CPT/HCPCS: 0241U; 36415; 80053; 81001; 83605; 83735; 85025; 86140; 87040; 87086; 96365; 99283; J1956